=== PATIENT | male | born 1950 | race Caucasian/White ===

== ENCOUNTER → 2017-09-12 | Outpatient (CLI) | payer MEDICARE, BC ==
[~2017-09-12] MED LIST: ADJUSTABLE COMM1 MIS; ALBU8I INH; ALEN35TA24 PO; ATOR20TA15 PO; ATOR40TA PO; ATOR40TA16 PO; BUSP10TA PO; BUSP5 PO; DILT1TAB4 PO; DULE100A PO; ENOX60P SQ; GABA300C5 PO; HYDR-3516 PO; IPRA0.02 NEB; IPRA0.03; ISOS30TA3 PO; LEVA1.257 NEB; LEVA250T14 PO; METO25 PO; OMEP20TA39 PO; OMEP20TA93 PO; RANI300T PO; TAZT240C2 PO; TOBR1NEB NEB; TRAM50TA PO; WALKER WHEELS/F1 MIS; WARF-22 PO; WARF-23 PO; WARF-60 PO; WARF10 PO; WARF4TAB52 PO
[2017-09-12 10:35] LABS: AUTOMATED NEUTROPHIL # 7.3 TH/MM3 (1.8-7.7); BASOPHIL % 0.3 % (0.0-2.0); EOSINOPHIL # 0.2 TH/MM3 (0-0.4); EOSINOPHIL % 1.2 % (0.0-4.0); HEMATOCRIT 43.6 % (39.0-51.0); HEMO FLAGS DIFF FINAL; LYMPH % 33.4 % (9.0-44.0); LYMPHOCYTE # 4.3 TH/MM3 (1.0-4.8); MEAN CELL VOLUME 90.6 FL (80.0-100.0); MEAN CORPUSCULAR HEMOGLOBIN 29.4 PG (27.0-34.0); MEAN CORPUSCULAR HGB CONC 32.5 % (32.0-36.0); MONO % 8.6 % (0.0-8.0); NEUT % 56.5 % (16.0-70.0); PLATELET COUNT 352 TH/MM3 (150-450); RED BLOOD COUNT 4.81 MIL/MM3 (4.50-5.90); RED CELL DISTRIBUTION WIDTH 14.4 % (11.6-17.2); WHITE BLOOD COUNT 12.9 TH/MM3 (4.0-11.0)
[2017-09-12 10:39] LABS: BLOOD, URINE TRACE (NEG); COMMENT (UR) CULT NOT INDICATED; CULTURE IF INDICATED CULT NOT INDICATED; GLUCOSE,URINE NEG (NEG); HYALINE CAST, URINE 16 /lpf (RARE); KETONE, URINE NEG (NEG); MUCUS URINE MANY /lpf (OCC); NITRITE,URINE NEG (NEG); SQUAMOUS EPITHELIAL CELL URINE 1 /hpf (0-5); URINE COLOR YELLOW (YELLW/STRAW)
[2017-09-12 10:41] LABS: INTERNATIONAL NORMALIZED RATIO 3.2 RATIO; PROTHROMBIN TIME - PATIENT 32.7 SEC (9.8-11.6)
[2017-09-12 10:59] LABS: BICARBONATE 28.8 MEQ/L (21.0-32.0); POTASSIUM 4.6 MEQ/L (3.5-5.1)
--- NOTE | 2017-09-12 12:11 | RADRPT ---
EXAM DATE/TIME: 09/12/2017 11:22 [facility] COMPARISON: CHEST SINGLE AP, May 28, 2016, 5:15. INDICATIONS : Pre-operative fo left hip replacement on 09/23/17. Evaluate for pneumonia, pneumothorax, or communica ble disease. MEDICAL HISTORY : Chronic obstructive pulmonary disease. Emphysema. TIA. SURGICAL HISTORY : Lobe removal, left upper. ENCOUNTER: Initial ACUITY: 1 day PAIN SCORE: 0/10 LOCATION: Bilateral chest FINDINGS: PA and lateral views of the chest demonstrate left apical pleural-parenchymal scarring and postsurgic al changes. There is volume loss. Bullous changes right apex.. Osseous structures are intact. CONCLUSION: 1. Stable chest. 2. Pleural-parenchymal scarring and postsurgical changes left lung. Andres Malave MD on September 12, 2017 at 12:09 Board Certified Radiologist. This report was verified electronically.
== END ==
LOC: CPRE 09:58
PROVIDERS: ATTEND Orthopaedic Surgery
DX: Z01.812 Encounter for preprocedural laboratory examination (principal); Z01.811 Encounter for preprocedural respiratory examination; M87.051 Idiopathic aseptic necrosis of right femur; Z79.01 Long term (current) use of anticoagulants
CPT/HCPCS: 36415; 71020; 80048; 81001; 85025; 85610

== ENCOUNTER 2017-09-23 11:02 | Inpatient (IN) | payer MEDICARE, BC ==
--- NOTE | 2017-09-11 12:40 | MH ---
cc: ROSSANA SPICER DATE OF ADMISSION: 09/23/2017 ADMITTING DIAGNOSIS Aseptic necrosis of the right hip. Pain right hip. Gait disturbance. HISTORY The patient is a 66-year-old white male who has had an extended history of pain about his right hip area for at least 2 years' duration. His history actually dates back for a much longer interval of time for which the patient reports that he had undergone previous evaluation for pain of his right foot for which he was referred for podiatry evaluation and was diagnosed as having a stress fracture for which he was fitted with a boot support with progressive pain being noted thereafter. The patient did undergo a subsequent CT scan evaluation with apparently no abnormal findings being noted, but he was requiring use of a wheelchair and walker as ambulatory aids for which he was later referred for neurosurgical evaluation. At that time the patient reported a 40-year history of low back pain for which he had received pain management, especially over the past 2 years but continuing to note discomfort including pain of his right hip area. Clinical findings at that time were suspicious for pain originating in the hip area for which his evaluating neurosurgeon recommended that he proceed with an MRI scan examination. Findings reported avascular necrosis bilaterally, being more pronounced on the right side. The patient was later referred for orthopedic evaluation for which he was seen in August of this year and at that time he reported ongoing pain of his hip area radiating into the groin for which he was having considerable difficulty conforming to all weightbearing activities. He had been taking hydrocodone for pain management and was continuing to utilize a cane as an ambulatory aid at that time but progressively becoming more dependent on a walker. He did admit to a longstanding history of ethanol abuse but having discontinued consumption within the previous 2-3 years. There was no history of excessive steroid use and no other factors that might be associated with an etiology of aseptic necrosis. At the time of his office evaluation x-ray studies revealed collapse of the femoral head with a flattening effect superiorly that was consistent with avascular necrosis. Findings and treatment options were reviewed at that time. The pros and cons of continuing with conservative management versus operative intervention that would involve a total hip arthroplasty were outlined in detail. Emphasis was made regarding the fact that the decision to proceed with surgery would be left entirely to the patient's discretion. The patient readily admitted that he was considerably incapacitated with regards to all activities of daily living because of his right hip pain and was ready to proceed with surgery as discussed. In compliance with his wishes he is currently being scheduled for admission in order that the above be accomplished. PAST MEDICAL HISTORY Hospitalizations and surgeries have included - 1. Cardiac catheterization. 2. Debridement of decubitus ulcers of the buttock area bilaterally. 3. Left upper lobe lobectomy for history of cancer. 4. Medical management for pneumonia. 5. Left pneumothorax. 6. TIA. 7. Anxiety. 8. Additional surgeries have included tracheostomy. MEDICAL ILLNESSES 1. Anxiety, depression. 2. GERD syndrome. 3. Atrial fibrillation. 4. Hypertension. 5. Elevated cholesterol. 6. COPD with emphysema. CURRENT MEDICATIONS 1. Alendronate 35 mg weekly. 2. Calcium with vitamin D 600 mg-400 twice daily. 3. Buspirone 10 mg three times daily. 4. Omeprazole 20 mg daily. 5. Ranitidine 300 mg daily. 6. Warfarin 6 mg daily. 7. Diltiazem ER 240 mg daily. 8. Atorvastatin 40 mg 1/2 tablet daily. 9. Levalbuterol 125 mg two to three times daily. 10. A nebulizer with ipratropium 0.5 mg. 11. He takes hydrocodone 5/325 on a full p.r.n. basis. 12. Gabapentin 300 mg four times daily. 13. The patient is also been on a recent course of antibiotics including ciprofloxacin, Levaquin and tobramycin inhalant for history of upper respiratory infection. ALLERGIES He denies any known drug allergies. REVIEW OF SYSTEMS HEENT: He does wear glasses. Denies headache, seizure or syncope. No sinus congestion or epistaxis. Auditory acuity intact. No tinnitus. No bleeding gums or dysphagia. RESPIRATORY: Denies cough, shortness of breath. There is a history of upper respiratory infection, previous history of pneumonia. No tuberculosis. CARDIOVASCULAR: No angina. GASTROINTESTINAL: Appetite is good. He has frequent constipation based upon chronic use of hydrocodone for which he does utilize a stool softener. No gallbladder disease, ulcers or hemorrhoids. No history of hepatitis. GENITOURINARY: No urinary tract infection. No kidney stones. MUSCULOSKELETAL: There is a history of a fracture of his left great toe as well as bilateral stress fractures of the feet. PSYCHIATRIC: He has undergone psychiatric treatment for anxiety and depression. His remaining review of systems is unremarkable and noncontributory. FAMILY HISTORY 46 years, is 65 years of age, described as being in good health. Two sons and two daughters indicated to be in good health. Family history is otherwise positive for hypertension, diabetes and cancer of unspecified etiology with bony metastases. SOCIAL HISTORY The patient completed 2 years of trade school education. 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 He had been more than a 50 pack-year user of tobacco but discontinued smoking within the previous 3 years. Had been a heavy drinker in the past but no alcohol consumption. Within the past three years. PHYSICAL EXAMINATION VITAL SIGNS: Height 6 feet, 1 inch, weight 196 pounds. GENERAL: An alert, oriented and responsive 66-year-old white male who sits quietly upon the examination table. No obvious distress. HEAD, EYES, EARS, NOSE, AND THROAT: Pupils are equally, round and reactive to light. Extraocular movements full. Sclerae clear. External nares clear. External auditory canals clear. Dental intact. Mucous membranes pink and moist. Pharynx clear. NECK: Supple. There is limited mobility towards the extremes of motion with mild discomfort that the patient describes as being chronic in nature. Carotid pulse palpable bilaterally. Trachea midline. Thyroid without enlargement. LUNGS: Clear to auscultation and percussion. No CVA tenderness. No discomfort throughout the dorsal lumbar spine. HEART: Regular irregular rhythm without murmur or gallop. ABDOMEN: Soft, nontender. Bowel sounds present. RECTAL: Per primary care physician. EXTREMITIES: Right hip- There is no localizing tenderness about the lateral aspect of the right hip. In a seated position there is restricted mobility of the hip joint in all ranges assessed with pain and apprehension associated with the extremes of motion. No sensation of crepitation or instability. Straight-leg raising is limited to 60 degrees. Distal sensory grossly intact. Pronounced antalgic gait. NEUROLOGIC: Cranial nerves II-XII grossly intact. IMPRESSION Aseptic necrosis right hip. Pain right hip. Gait disturbance. PLAN Right total hip arthroplasty. The nature of the planned surgical procedure, the potential complications and risks associated, the expectations of surgery and the consent form were thoroughly reviewed with the patient in the presence of his prior to his admission to the hospital. John has indicated his full understanding regarding all of the above and given consent to proceed with treatment as outlined. Medical evaluation and clearance for surgery will be completed by his primary care physician Dr. Elvi Ang, pulmonology clearance per Dr. Pedraza, cardiology clearance per Dr. Benz. MD OLE Anguiano/SSB /11:55 AM /12:17 PM
[~2017-09-23] VITALS: Ht 185.4 cm; Wt 88.5 kg
[~2017-09-23 11:02] MED LIST changes: -ADJUSTABLE COMM1 MIS; -ALBU8I INH; -ATOR40TA PO; -ATOR40TA16 PO; -BUSP5 PO; -DULE100A PO; -ENOX60P SQ; -IPRA0.03; -ISOS30TA3 PO; -LEVA250T14 PO; -METO25 PO; -OMEP20TA39 PO; -TAZT240C2 PO; -TRAM50TA PO; -WALKER WHEELS/F1 MIS; -WARF-22 PO; -WARF-23 PO; -WARF10 PO; -WARF4TAB52 PO
[2017-09-23] MEDS ORDERED: POVIDONE IODINE 7.5% SCRUB 118 ML BOTTLE TOPICAL SCH (12:00)
[2017-09-23] MEDS ORDERED: PROPOFOL 200 MG/20 ML AMP IV ONE (12:00)
[2017-09-23] MEDS ORDERED: TRANEXAMIC ACID 1 GM PRIOR TO PROCEDURE IV SCH ×2 (12:00)
[2017-09-23] MEDS ORDERED: ceFAZolin 2 GM PREMIX 50 ML IV SCH (12:00)
[2017-09-23] MEDS ORDERED: PHENYLEPH/NS 1000 MCG/10 ML SYR IV ONE (12:00)
[2017-09-23] MEDS ORDERED: DEXAMETHASONE SOD PHOS 4 MG/ML VIAL IV ONE (12:00)
[2017-09-23] MEDS ORDERED: ONDANSETRON HCL 4 MG/2 ML VIAL IV PUSH ONE (12:00)
[2017-09-23] MEDS ORDERED: WARF-23 PO (12:07)
[2017-09-23] MEDS ORDERED: WARF4TAB52 PO (12:07)
[2017-09-23] MEDS ORDERED: ATOR40TA16 PO (12:10)
[2017-09-23] MEDS ORDERED: SODIUM CHLORID 0.9% 500 ML IV PRN (12:15)
[2017-09-23] MEDS ORDERED: METOPROLOL TARTRATE 25 MG TAB PO PRN (12:15)
[2017-09-23] MEDS ORDERED: POVIDONE IODINE 5% (ANTISEPSIS KIT) 4 APPLICATIONS EACH NARE PRN (12:15)
[2017-09-23] MEDS ORDERED: CHLORHEXIDINE GLUCONATE 2 % 1 PACK (2 CLOTHS) TOPICAL PRN (12:15)
[2017-09-23] MEDS ORDERED: LACTATED RINGER'S 1000 ML IV PRN (12:15)
[2017-09-23] MEDS ORDERED: PROPOFOL 500 MG/50 ML INJ 50 ML ONE (12:22)
[2017-09-23] MEDS ORDERED: ceFAZolin INJ 1,000 MG VIAL ONE (12:43)
[2017-09-23 12:51] LABS: PROTHROMBIN TIME - PATIENT 10.6 SEC (9.8-11.6)
--- NOTE | 2017-09-23 13:06 | EKG ---
Date Performed: 09/23/2017 Time Performed: 12:04:24 PTAGE: 66 years EKG: ATRIAL FLUTTER/TACHYCARDIA RIGHT BUNDLE BRANCH BLOCK ABNORMAL ECG No significant change fro m prior electrocardiogram. PREVIOUS TRACING : 06/17/2016 07.44 DOCTOR: Femi Molina Interpretating Date/Time 09/23/2017 13:04:18
[2017-09-23] MEDS ORDERED: TRANEXAMIC ACID 1 GM POST-OP IV SCH ×2 (15:00)
[2017-09-23] MEDS ORDERED: DO NOT ADM ANY ANTICOAGULANT DRUGS PRN (15:09)
[2017-09-23] MEDS ORDERED: ACETAMINOPHEN 325 MG TAB PO PRN (15:15)
[2017-09-23] MEDS ORDERED: ONDANSETRON HCL 4 MG/2 ML VIAL IVP PRN (15:15)
[2017-09-23] MEDS ORDERED: MISCELLANEOUS PHARMACY INFORMATION XX ONE (15:15)
[2017-09-23] MEDS ORDERED: ACETAMINOPHEN/HYDROcodone 325 MG/5 MG TAB PO PRN (15:15)
[2017-09-23] MEDS ORDERED: ZOLPIDEM TARTRATE 5 MG TAB PO PRN (15:15)
[2017-09-23] MEDS ORDERED: NALOXONE HCL 0.4 MG/ML AMP IV PUSH PRN (15:15)
[2017-09-23] MEDS ORDERED: Post-op Orders (for Pharmacy) XX ONE (15:15)
[2017-09-23] MEDS ORDERED: *morphine SULFATE 8 MG/ML PERIprocedure ONLY ONE (15:16)
[2017-09-23] MEDS ORDERED: TRANEXAMIC ACID INJ 1,000 MG in SODIUM CHLORIDE 0.9% INJ 100 ML IV SCH (15:26)
[2017-09-23] MEDS: DEXT 5%-NACL 0.45% 1000 ML INJ 1,000 ML IV SCH ×2 (15:56→21:18)
--- NOTE | 2017-09-23 16:04 | RADRPT ---
EXAM DATE/TIME: 09/23/2017 15:19 [facility] COMPARISON: No previous studies available for comparison. INDICATIONS : Right hip post op. MEDICAL HISTORY : Chronic obstructive pulmonary disease. Emphysema. TIA. SURGICAL HISTORY : Lobe removal, left upper ENCOUNTER: Initial ACUITY: 1 day PAIN SCORE: Non-responsive. LOCATION: Right hip. FINDINGS: View of the right hip was obtained. Patient's had a total hip arthroplasty in excellent position. CONCLUSION: Unremarkable examination of the right hip s/p arthroplasty. Augustine Salguero MD on September 23, 2017 at 16:01 Board Certified Radiologist. This report was verified electronically.
[2017-09-23] MEDS ORDERED: *MEPERIDINE 25 MG INJ VIAL PERIprocedural Use ONLY ONE (16:20)
[2017-09-23] MEDS: MORPHINE SULFATE 30 MG/30 ML PCA IV SCH (16:36)
[2017-09-23 17:54] VITALS: BP 167/95; PULSE 85; RESP 18; TEMP 96; O2SAT 98
[2017-09-23 19:50] VITALS: BP 140/66; PULSE 72; RESP 16; TEMP 96.8; O2SAT 96
[2017-09-23] MEDS: PCA - TOTAL MG MORPHINE DELIVERED PER SHIFT SCH (22:00)
[2017-09-24] VITALS (9 sets, daily range): BP systolic 95–139; BP diastolic 64–82; PULSE 55–89; RESP 17–18; TEMP 96.3–98.2; O2SAT 93–98
[2017-09-24] MEDS ORDERED: RESP: ALBUTEROL 2.5 MG/IPRATROPIUM 0.5 MG NEB (PRN) NEB ×2 (01:15→09:30)
[2017-09-24] MEDS: DILTIAZEM-CD 240 MG CAP ER PO SCH ×3 (01:19→20:57)
[2017-09-24] MEDS: MORPHINE SULFATE 30 MG/30 ML PCA IV SCH (01:27)
[2017-09-24] MEDS: PCA - TOTAL MG MORPHINE DELIVERED PER SHIFT SCH ×3 (06:00→20:58)
[2017-09-24] MEDS ORDERED: HYDR-3516 PO (06:32)
--- NOTE | 2017-09-24 06:35 | HHI.FF ---
Face to Face Verification Diagnosis: (1) Aseptic necrosis of bone of right hip Physical Therapy Gait training Hip: Total hip, Protocol: Right, Abduction pillow while in bed Right LE Weight Bearing: WB as tolerated Right LE Range of Motion: Active ROM Nursing Dressing Changes: Daily dressing change I have seen patient Ismael Yancey on 09/24/17. My clinical findings support the need for the requested home health care services because: Limited ability to care for self High risk of falls I certify that my clinical findings support that this patient is homebound because: Post-op weakness Unsteady gait/balance Unsafe to leave home unassisted Vic Cabello MD Sep 24, 2017 06:34
[2017-09-24] MEDS ORDERED: WALKER WHEELS/F1 MIS (06:38)
[2017-09-24] MEDS ORDERED: ADJUSTABLE COMM1 MIS (06:38)
[2017-09-24 06:55] LABS: HEMATOCRIT 35.8 % (39.0-51.0); REVIEW FLAG FINAL
[2017-09-24] MEDS: DEXT 5%-NACL 0.45% 1000 ML INJ 1,000 ML IV SCH ×3 (07:12→20:58)
--- NOTE | 2017-09-24 07:17 | MP ---
cc: ROSSANA CABELLO DATE OF OPERATION 23 September 2017 PREOPERATIVE DIAGNOSIS Aseptic necrosis of right hip. Pain right hip. Gait disturbance. POSTOPERATIVE DIAGNOSIS Aseptic necrosis of right hip. Pain right hip. Gait disturbance. PROCEDURE right total hip arthroplasty. SURGEON MD Irineo ANESTHESIA Spinal. INDICATIONS A 66-year-old white male with an extended history of pain involving his right hip, going back at least 2 years. His history actually extended back for much longer interval of time when the patient had undergone previous evaluation Initially, oriented towards his right foot for which he was referred for podiatry evaluation and diagnosed as having a stress fracture for which he was fitted with boot support but noting progressive pain thereafter. A subsequent CT scan evaluation was completed with no abnormal findings being noted but he was requiring use of a wheelchair and walker as ambulatory aids. He was later referred for neurosurgical evaluation and at that time he presented a history of 40 years of low back pain for which he had received pain management but during the past 2 years had noted progressive discomfort especially involving his right hip. At that time his clinical findings were suspicious for pain originating from the hip as opposed to his lumbar spine for which his evaluating neurosurgeon recommended that he proceed with an MRI scan evaluation. Findings identified avascular necrosis bilaterally being more pronounced about the right hip area for which the patient was later referred for orthopedic evaluation and being seen by the undersigned physician in August of this year. At that time he reported ongoing pain about his hip associated with all weightbearing activities for which he had been taking hydrocodone for pain management. He was continued to utilize a cane as an ambulatory aid but becoming increasingly more dependent upon a walker. He did admit to a longstanding history of ethanol abuse but he had discontinued consumption within the previous 2-3 years. Otherwise there were no additional factors that might be associated with the etiology of aseptic necrosis. At that time his x-ray studies did revealed collapse of the femoral head with a flattening effect superiorly that was consistent with the given diagnosis. Findings and treatment options were reviewed. The pros and cons of continuing with conservative management versus operative intervention that would involve a total hip arthroplasty were outlined in detail. The emphasis was made regarding the fact that the decision to proceed with surgery would be left entirely to the patient's discretion. The patient readily admitted that he was considerably incapacitated with regards to all activities of daily living as related to his right hip pain and was ready to proceed with surgery as discussed. In compliance with his wishes he was scheduled for admission at this time in order that the above be accomplished. FORMAT Following the induction of satisfactory spinal anesthesia as completed per the Department of Anesthesia, the patient was positioned upon the operating table in a left lateral decubitus fashion. The right hip and lower extremity proper was isolated with a U drape, thereafter being prepped with Betadine solution and draped into a sterile field in the routine manner. Prior to the initiation of the actual procedure, the standard time-out protocol was completed. All parameters were appropriately addressed and confirmed by operating room personnel. A standard posterolateral approach to the hip was initiated through a sharp skin incision and developed through underlying subcutaneous tissue with hemostasis maintained by electrocautery. By deepening dissection the fascia overlying the gluteus musculature was exposed and thereafter sharply incised to the limits of the incision. The underlying gluteus fibers were bluntly divided. Progressive dissection facilitated exposure of the short external rotators structures. Piriformis tendon was utilized as anatomical landmark and division of these structures was completed in a superior to inferior orientation and reflected medially exposing the posterior capsule. The sciatic nerve was protected. An L-shaped capsulotomy was accomplished through which a posterior dislocation of the femoral head was completed. Examination revealed significant degenerative changes with a delamination of the cartilage cap that was consistent with an avascular necrosis. The femoral template was positioned for alignment orientation. The neck was scored and thereafter divided with power saw, the amputated segment being passed to the back table as surgical specimen. Attention was initially directed to the proximal femur. Cancellous bone was harvested. The tapered reamer was inserted for alignment orientation. Sequential rasping and broaching was thereafter accomplished from 8 through 16 mm with the calcar zacarias being utilized at the 16-mm stage. The 16-mm stem was determined to be a favorable fit. The trial component being removed, attention was redirected the acetabulum. The labrum and reactive soft tissue were sharply excised. Progressive reaming was thereafter accomplished from 48 through 59 mm, the 60 trial shell positioned and determined to be satisfactory. Trial components being removed, the wound was copiously irrigated with pulsating antibiotic solution, hemostasis maintained by electrocautery. Thereafter a 60-mm Continuum acetabular shell was firmly seated in approximately 45 degrees inclination to the horizontal and slight anteversion. A single 25-mm, 6.5 cancellous screw was inserted superiorly to augment fixation. The permanent high wall acetabular liner was attached to the acetabular shell. The 16-mm trial femoral broach was repositioned and a trial reduction followed utilizing a 36-mm modular head with -6 mm neck length adapter. The hip readily reduced and was carried through a passive range of motion with stability noted at 90 degrees flexion and 45 degrees internal rotation. An open dislocation completed, the trial femoral components being removed, the canal was thoroughly irrigated and dried and thereafter the permanent 16-mm Echo [employer] standard femoral stem was firmly seated to which a 36-mm ceramic head with -6 mm neck length adapter attached. The hip was thereafter again reduced and carried through a passive range of motion with stability again being demonstrated as previously described. Final irrigation was accomplished, hemostasis being maintained by electrocautery. The posterior capsule was repaired with 0 Vicryl suture. Piriformis tendon and short external rotator structures were reapproximated in a similar fashion. The fascia of the gluteus musculature was reapproximated with a running 0 Vicryl suture. The remaining portion of the wound was closed in layers in the routine manner, skin margins being reapproximated with a running subcuticular 3-0 Vicryl suture over which Steri-Strips were applied. Xeroform gauze and a bulky dry sterile dressing were placed. The patient was repositioned into a supine orientation where an abduction splint was attached. Anesthesia was discontinued. He was thereafter transferred to a hospital bed and returned to the recovery room in satisfactory condition having tolerated his operative procedure well. Estimated blood loss approximately 200 cc as determined per Anesthesia. Acetabular implants were of the Judd brusher operator, femoral implants of the [employer] manufacture. Rossana Cabello MD NBS/SSB /3:01 PM /6:52 AM
--- NOTE | 2017-09-24 08:06 | PD.CONS ---
HPI Service [facility] Consult Requested By Dr Irineo greer Reason for Consult med management Primary Care Physician Elvi Ang M.D. Diagnoses: History of Present Illness 66 yo male with PMH of COPD, Afib , HLD, h/o lung cancer with partial right lung resection, OA. Patient is here for right hip replacement. He was seen after the surgery, in bed appears in nad. Says ship pain is controlled by meds. No n/v/d/c. No chest pain, shortness of breath, lightheadedness. He denies any cough , no wheezing. He is saturating well and at this time. No lower extremity edema. Review of Systems Except as stated in HPI: all other systems reviewed are Neg Past Family Social History Allergies: Coded Allergies: No Known Allergies (Verified Allergy, Unknown, 09/23/17) Past Medical History COPD, Afib , HLD, CKD3, h/o cancer with partial right lung removal Past Surgical History partial right lung removed cardiac cath skin ca removed from back Reported Medications Last Impressions Hip X-Ray 09/23/17 1512 Signed Impressions: Service Date/Time: Saturday, September 23, 2017 15:19 - CONCLUSION: Unremarkable examination of the right hip s/p arthroplasty. Augustine Salguero MD Family History Mother cancer unspecified smoker Father when he was a kid , he was 7 ya Social History Tobacco 1-3 PPD for 50 years quit in 2013 Quit EtOH use in 2013 case a beer a week used to. No illicit drug use. Used to smoke MJ quit 2013. Physical Exam Vital Signs Vital Signs Date Time Temp Pulse Resp B/P (MAP) Pulse Ox O2 Delivery O2 Flow Rate FiO2 09/24/17 07:50 Room Air 09/24/17 04:15 96.9 88 17 133/78 (96) 96 09/24/17 00:00 96.9 84 17 139/82 (101) 97 09/23/17 19:50 96.8 72 16 140/66 (90) 96 09/23/17 17:54 96.0 85 18 167/95 (119) 98 09/23/17 16:45 66 15 151/72 (98) 99 Nasal Cannula 2 09/23/17 16:36 12 09/23/17 16:30 63 12 136/63 (87) 100 Nasal Cannula 2 09/23/17 16:15 63 13 122/67 (85) 100 Nasal Cannula 2 09/23/17 16:00 62 13 155/74 (101) 100 Nasal Cannula 2 09/23/17 15:45 63 12 132/68 (89) 100 Nasal Cannula 2 09/23/17 15:30 65 12 128/64 (85) 100 Nasal Cannula 2 09/23/17 15:15 66 13 107/57 (74) 100 Nasal Cannula 2 09/23/17 15:09 97.5 67 13 108/61 (77) 98 Nasal Cannula 2 09/23/17 11:46 97.8 88 18 184/92 (122) 98 Physical Exam GENERAL: This is a well-nourished, well-developed patient, in no apparent distress. SKIN: No rashes, ecchymoses or lesions. Cool and dry. HEAD: Atraumatic. Normocephalic. No temporal or scalp tenderness. EYES: Pupils equal round and reactive. Extraocular motions intact. No scleral icterus. No injection or drainage. ENT: Nose without bleeding, purulent drainage or septal hematoma. Throat without erythema, tonsillar hypertrophy or exudate. Uvula midline. Airway patent. NECK: Trachea midline. No JVD or lymphadenopathy. Supple, nontender, no meningeal signs. CARDIOVASCULAR: Regular rate and rhythm without murmurs, gallops, or rubs. RESPIRATORY: Clear to auscultation. Breath sounds equal bilaterally. No wheezes , rales, or rhonchi. GASTROINTESTINAL: Abdomen soft, non-tender, nondistended. No hepato-splenomegaly , or palpable masses. No guarding. MUSCULOSKELETAL: Right hip s/p surgery dressing in place c/d/i. Extremities without clubbing, cyanosis, or edema. No joint tenderness, effusion, or edema noted. No calf tenderness. Negative Homans sign bilaterally. NEUROLOGICAL: Awake and alert. Cranial nerves II through XII intact. Motor and sensory grossly within normal limits. Five out of 5 muscle strength in all muscle groups. Normal speech. Laboratory Laboratory Tests Test 09/23/17 12:15 09/24/17 06:13 Prothrombin Time 10.6 Prothromb Time International Ratio 1.0 Hemoglobin 11.8 Hematocrit 35.8 Result Diagram: 09/24/17 0613 Imaging Last Impressions Hip X-Ray 09/23/17 1512 Signed Impressions: Service Date/Time: Saturday, September 23, 2017 15:19 - CONCLUSION: Unremarkable examination of the right hip s/p arthroplasty. Augustine Salguero MD Assessment and Plan Assessment and Plan Aseptic necrosis of right hip. Pain right hip. Gait disturbance. S/P right total hip arthroplasty by Dr Irineo greer on 09/24/17 Management per ortho Chronic medical problems appears stable at this time. COPD, Afib , HLD, CKD3, h/ o cancer with partial right lung removal continue home meds. Discussed with the patient, nurse. Laverne Emanuel MD Sep 24, 2017 08:06
[2017-09-24] MEDS: busPIRone HCL 10 MG TAB PO SCH ×3 (08:54→18:26)
[2017-09-24] MEDS: FAMOTIDINE 20 MG TAB PO SCH ×2 (08:54→20:57)
[2017-09-24] MEDS ORDERED: DILTIAZEM-CD 240 MG CAP ER PO SCH (09:00)
[2017-09-24] MEDS ORDERED: GABAPENTIN 300 MG CAP PO SCH (09:00)
[2017-09-24] MEDS ORDERED: ATORVASTATIN 20 MG TAB PO SCH (09:00)
[2017-09-24] MEDS: ACETAMINOPHEN/HYDROcodone 325 MG/5 MG TAB PO PRN ×2 (13:46→18:31)
[2017-09-24] MEDS: RIVAROXABAN 10 MG TAB PO SCH (15:00)
[2017-09-24] MEDS ORDERED: RESP: ALBUTEROL 1.25 MG/3 ML NEB (SCH) NEB (20:00)
[2017-09-24] MEDS: RESP: IPRATROPIUM 0.5 MG/2.5 ML NEB NEB SCH (20:27)
[2017-09-24] MEDS: ATORVASTATIN 20 MG TAB PO SCH (20:57)
[2017-09-25] MEDS: ACETAMINOPHEN/HYDROcodone 325 MG/5 MG TAB PO PRN ×5 (02:38→22:59)
[2017-09-25] MEDS: PCA - TOTAL MG MORPHINE DELIVERED PER SHIFT SCH ×2 (03:09→13:51)
[2017-09-25] MEDS: DEXT 5%-NACL 0.45% 1000 ML INJ 1,000 ML IV SCH ×3 (07:12→23:12)
[2017-09-25 08:00] VITALS: BP 138/62; PULSE 60; RESP 18; TEMP 96.9; O2SAT 97
[2017-09-25] MEDS: RESP: IPRATROPIUM 0.5 MG/2.5 ML NEB NEB SCH ×2 (08:00→19:55)
[2017-09-25] MEDS: busPIRone HCL 10 MG TAB PO SCH ×3 (08:20→21:37)
[2017-09-25] MEDS: FAMOTIDINE 20 MG TAB PO SCH ×2 (08:20→21:37)
[2017-09-25] MEDS: DOCUSATE SODIUM 100 MG CAP PO PRN (08:20)
--- NOTE | 2017-09-25 08:52 | HHI.PR ---
Subjective Remarks Was walking with PT in the hallways, feel tired. He is sob but satting well on room air. No n/v/d/c. Pain is controlled by meds. Nisha evangelistauld like to go to [facility] inpatient re[facility]. He has no fever or chills. No wheezing. No n/v/d/c. Objective Vitals Vital Signs Date Time Temp Pulse Resp B/P (MAP) Pulse Ox O2 Delivery O2 Flow Rate FiO2 09/25/17 07:50 Room Air 09/24/17 23:33 96.7 89 18 126/77 (93) 94 09/24/17 20:27 95 21 09/24/17 20:07 97.0 76 18 122/69 (86) 94 09/24/17 16:00 96.3 79 18 95/64 (74) 98 09/24/17 12:00 98.2 88 18 137/79 (98) 95 I/O 09/24/17 09/24/17 09/24/17 09/25/17 09/25/17 09/25/17 07:00 15:00 23:00 07:00 15:00 23:00 Intake Total 240 ml 720 ml 360 ml 720 ml Output Total 525 ml 500 ml 700 ml Balance -285 ml 220 ml 360 ml 20 ml Intake Oral 240 ml 720 ml 360 ml 720 ml Output Urine Total 525 ml 500 ml 700 ml # Voids 2 # Bowel Movements 0 0 0 0 Result Diagram: 09/24/17 0613 Imaging Last Impressions Hip X-Ray 09/23/17 1512 Signed Impressions: Service Date/Time: Saturday, September 23, 2017 15:19 - CONCLUSION: Unremarkable examination of the right hip s/p arthroplasty. Augustine Salguero MD Objective Remarks GENERAL: This is a well-nourished, well-developed patient, in no apparent distress. CARDIOVASCULAR: Regular rate and rhythm without murmurs, gallops, or rubs. RESPIRATORY: Clear to auscultation. Breath sounds equal bilaterally. No wheezes , rales, or rhonchi. GASTROINTESTINAL: Abdomen soft, non-tender, nondistended. No hepato-splenomegaly , or palpable masses. No guarding. MUSCULOSKELETAL: Right hip s/p surgery dressing in place c/d/i. Extremities without clubbing, cyanosis, or edema. No joint tenderness, effusion, or edema noted. No calf tenderness. Negative Homans sign bilaterally. NEUROLOGICAL: Awake and alert. Cranial nerves II through XII intact. Motor and sensory grossly within normal limits. Five out of 5 muscle strength in all muscle groups. Normal speech. A/P Assessment and Plan Aseptic necrosis of right hip. Pain right hip. Gait disturbance. S/P right total hip arthroplasty by Dr Irineo greer on 09/24/17 Management per ortho Chronic medical problems appears stable at this time. COPD, Afib , HLD, CKD3, h/ o cancer with partial right lung removal continue home meds. Patient to use his own medicaltion levalbuterol. Discussed with the nurse and the pharmacist. did bring levalbuterol from home. Discussed with the patient, nurse, at bedside. Laverne Emanuel MD Sep 25, 2017 08:52
[2017-09-25] MEDS ORDERED: LEVALBUTEROL INH SCH (11:00)
[2017-09-25 12:00] VITALS: BP 127/65; PULSE 72; RESP 18; TEMP 95.8; O2SAT 96
[2017-09-25] MEDS: RIVAROXABAN 10 MG TAB PO SCH (13:38)
[2017-09-25 16:00] VITALS: BP 142/67; PULSE 72; RESP 18; TEMP 96.3; O2SAT 97
[2017-09-25] MEDS: MAGNESIUM HYDROXIDE SUSP 30 ML CUP PO PRN (18:08)
[2017-09-25 19:37] VITALS: BP 149/67; PULSE 101; RESP 18; TEMP 96.7; O2SAT 97
[2017-09-25 20:01] VITALS: O2SAT 97
[2017-09-25] MEDS: DILTIAZEM-CD 240 MG CAP ER PO SCH (21:37)
[2017-09-25] MEDS: ATORVASTATIN 20 MG TAB PO SCH (21:37)
[2017-09-25 23:57] VITALS: BP 126/69; PULSE 69; RESP 18; TEMP 97.1; O2SAT 98
[2017-09-26 08:00] VITALS: BP 152/73; PULSE 65; RESP 18; TEMP 97; O2SAT 95
[2017-09-26] MEDS: RESP: IPRATROPIUM 0.5 MG/2.5 ML NEB NEB SCH (08:50)
[2017-09-26] MEDS: MAGNESIUM HYDROXIDE SUSP 30 ML CUP PO PRN (08:51)
[2017-09-26] MEDS: FAMOTIDINE 20 MG TAB PO SCH (08:51)
[2017-09-26] MEDS: busPIRone HCL 10 MG TAB PO SCH ×3 (08:51→17:06)
[2017-09-26] MEDS: DOCUSATE SODIUM 100 MG CAP PO PRN (08:51)
[2017-09-26] MEDS: ACETAMINOPHEN/HYDROcodone 325 MG/5 MG TAB PO PRN ×3 (08:52→17:07)
[2017-09-26 08:53] VITALS: O2SAT 97
--- NOTE | 2017-09-26 09:15 | HHI.PR ---
Subjective Remarks 66 yo male with PMH of COPD, Afib , HLD, h/o lung cancer with partial right lung resection, OA. Patient is here for right hip replacement. He was seen after the surgery, in bed appears in nad. Says hip pain is controlled by meds. No n/v/d/c. No chest pain, shortness of breath, lightheadedness. He denies any cough , no wheezing. He is saturating well and at this time. No lower extremity edema. 09-26 only some pain in his right hip Denies any nausea vomiting or diarrhea or obstipation Has been moving around he states with physical therapy Objective Vitals Vital Signs Date Time Temp Pulse Resp B/P (MAP) Pulse Ox O2 Delivery O2 Flow Rate FiO2 09/26/17 08:53 97 09/25/17 23:57 97.1 69 18 126/69 (88) 98 09/25/17 21:34 Room Air 2.00 21 09/25/17 20:01 97 21 09/25/17 19:37 96.7 101 18 149/67 (94) 97 09/25/17 16:00 96.3 72 18 142/67 (92) 97 09/25/17 12:00 95.8 72 18 127/65 (85) 96 I/O 09/25/17 09/25/17 09/25/17 09/26/17 09/26/17 09/26/17 07:00 15:00 23:00 07:00 15:00 23:00 Intake Total 720 ml 720 ml 720 ml 375 ml Output Total 700 ml 550 ml 425 ml Balance 20 ml 170 ml 720 ml -50 ml Intake Oral 720 ml 720 ml 720 ml 375 ml Output Urine Total 700 ml 550 ml 425 ml # Voids 1 3 # Bowel Movements 0 0 0 0 Result Diagram: 09/24/17 0613 Other Results Laboratory Tests Test 09/23/17 12:15 09/24/17 06:13 Prothrombin Time 10.6 SEC Prothromb Time International Ratio 1.0 RATIO Hemoglobin 11.8 GM/DL Hematocrit 35.8 % Imaging Last Impressions Hip X-Ray 09/23/17 8472 Signed Impressions: Service Date/Time: Saturday, September 23, 2017 15:19 - CONCLUSION: Unremarkable examination of the right hip s/p arthroplasty. Augustine Salguero MD Objective Remarks GENERAL: Awake alert oriented talkative and cooperative SKIN: Warm and dry. HEAD: Atraumatic. Normocephalic. EYES: Pupils equal and round. No scleral icterus. No injection or drainage. Extraocular muscles intact ENT: No nasal bleeding or discharge. Mucous membranes pink and moist. Tongue is midline NECK: Trachea midline. No JVD. Supple CARDIOVASCULAR: Regular rate and rhythm. S1 and S2 no S3 or S4 no heave or thrill or rub or gallop RESPIRATORY: No accessory muscle use. Clear to auscultation. Breath sounds equal bilaterally. GASTROINTESTINAL: Abdomen soft, non-tender, nondistended. Hepatic and splenic margins not palpable. MUSCULOSKELETAL: Extremities without clubbing, cyanosis, or edema. No obvious deformities. NEUROLOGICAL: Awake and alert. No obvious cranial nerve deficits. Motor grossly within normal limits. Five out of 5 muscle strength in the arms and legs. Normal speech. PSYCHIATRIC: Appropriate mood and affect; insight and judgment normal. Procedures ROSSANA SPICER DATE OF OPERATION 23 September 2017 PREOPERATIVE DIAGNOSIS Aseptic necrosis of right hip. Pain right hip. Gait disturbance. POSTOPERATIVE DIAGNOSIS Aseptic necrosis of right hip. Pain right hip. Gait disturbance. PROCEDURE right total hip arthroplasty. SURGEON MD Irineo ANESTHESIA Spinal. INDICATIONS A 66-year-old white male with an extended history of pain involving his right hip, going back at least 2 years. His history actually extended back for much longer interval of time when the patient had undergone previous evaluation Initially, oriented towards his right foot for which he was referred for podiatry evaluation and diagnosed as having a stress fracture for which he was fitted with boot support but noting progressive pain thereafter. A subsequent CT scan evaluation was completed with no abnormal findings being noted but he was requiring use of a wheelchair and walker as ambulatory aids. He was later referred for neurosurgical evaluation and at that time he presented a history of 40 years of low back pain for which he had received pain management but during the past 2 years had noted progressive discomfort especially involving his right hip. At that time his clinical findings were suspicious for pain originating from the hip as opposed to his lumbar spine for which his evaluating neurosurgeon recommended that he proceed with an MRI scan evaluation. Findings identified avascular necrosis bilaterally being more pronounced about the right hip area for which the patient was later referred for orthopedic evaluation and being seen by the undersigned physician in August of this year. At that time he reported ongoing pain about his hip associated with all weightbearing activities for which he had been taking hydrocodone for pain management. He was continued to utilize a cane as an ambulatory aid but becoming increasingly more dependent upon a walker. He did admit to a longstanding history of ethanol abuse but he had discontinued consumption within the previous 2-3 years. Otherwise there were no additional factors that might be associated with the etiology of aseptic necrosis. At that time his x-ray studies did revealed collapse of the femoral head with a flattening effect superiorly that was consistent with the given diagnosis. Findings and treatment options were reviewed. The pros and cons of continuing with conservative management versus operative intervention that would involve a total hip arthroplasty were outlined in detail. The emphasis was made regarding the fact that the decision to proceed with surgery would be left entirely to the patient's discretion. The patient readily admitted that he was considerably incapacitated with regards to all activities of daily living as related to his right hip pain and was ready to proceed with surgery as discussed. In compliance with his wishes he was scheduled for admission at this time in order that the above be accomplished. FORMAT Following the induction of satisfactory spinal anesthesia as completed per the Department of Anesthesia, the patient was positioned upon the operating table in a left lateral decubitus fashion. The right hip and lower extremity proper was isolated with a U drape, thereafter being prepped with Betadine solution and draped into a sterile field in the routine manner. Prior to the initiation of the actual procedure, the standard time-out protocol was completed. All parameters were appropriately addressed and confirmed by operating room personnel. A standard posterolateral approach to the hip was initiated through a sharp skin incision and developed through underlying subcutaneous tissue with hemostasis maintained by electrocautery. By deepening dissection the fascia overlying the gluteus musculature was exposed and thereafter sharply incised to the limits of the incision. The underlying gluteus fibers were bluntly divided. Progressive dissection facilitated exposure of the short external rotators structures. Piriformis tendon was utilized as anatomical landmark and division of these structures was completed in a superior to inferior orientation and reflected medially exposing the posterior capsule. The sciatic nerve was protected. An L-shaped capsulotomy was accomplished through which a posterior dislocation of the femoral head was completed. Examination revealed significant degenerative changes with a delamination of the cartilage cap that was consistent with an avascular necrosis. The femoral template was positioned for alignment orientation. The neck was scored and thereafter divided with power saw, the amputated segment being passed to the back table as surgical specimen. Attention was initially directed to the proximal femur. Cancellous bone was harvested. The tapered reamer was inserted for alignment orientation. Sequential rasping and broaching was thereafter accomplished from 8 through 16 mm with the calcar zacarias being utilized at the 16-mm stage. The 16-mm stem was determined to be a favorable fit. The trial component being removed, attention was redirected the acetabulum. The labrum and reactive soft tissue were sharply excised. Progressive reaming was thereafter accomplished from 48 through 59 mm, the 60 trial shell positioned and determined to be satisfactory. Trial components being removed, the wound was copiously irrigated with pulsating antibiotic solution, hemostasis maintained by electrocautery. Thereafter a 60-mm Continuum acetabular shell was firmly seated in approximately 45 degrees inclination to the horizontal and slight anteversion. A single 25-mm, 6.5 cancellous screw was inserted superiorly to augment fixation. The permanent high wall acetabular liner was attached to the acetabular shell. The 16-mm trial femoral broach was repositioned and a trial reduction followed utilizing a 36-mm modular head with -6 mm neck length adapter. The hip readily reduced and was carried through a passive range of motion with stability noted at 90 degrees flexion and 45 degrees internal rotation. An open dislocation completed, the trial femoral components being removed, the canal was thoroughly irrigated and dried and thereafter the permanent 16-mm Echo Bi-Metric standard femoral stem was firmly seated to which a 36-mm ceramic head with -6 mm neck length adapter attached. The hip was thereafter again reduced and carried through a passive range of motion with stability again being demonstrated as previously described. Final irrigation was accomplished, hemostasis being maintained by electrocautery. The posterior capsule was repaired with 0 Vicryl suture. Piriformis tendon and short external rotator structures were reapproximated in a similar fashion. The fascia of the gluteus musculature was reapproximated with a running 0 Vicryl suture. The remaining portion of the wound was closed in layers in the routine manner, skin margins being reapproximated with a running subcuticular 3-0 Vicryl suture over which Steri-Strips were applied. Xeroform gauze and a bulky dry sterile dressing were placed. The patient was repositioned into a supine orientation where an abduction splint was attached. Anesthesia was discontinued. He was thereafter transferred to a hospital bed and returned to the recovery room in satisfactory condition having tolerated his operative procedure well. Estimated blood loss approximately 200 cc as determined per Anesthesia. Acetabular implants were of the Judd flat bed knitter, femoral implants of the [employer] manufacture. Medications and IVs Current Medications Povidone Iodine (Betadine 7.5% Scrub) 1 applic ONCE TOPICAL Last administered on 09/23/17 12:32; Start 09/23/17 at 12:00; Stop 09/26/17 at 11:59 Cefazolin Sodium/ Dextrose 50 ml @ 100 mls/hr FIREPOT OPERATOR AND TENDER IV Last administered on 09/23/17 12:25; Start 09/23/17 at 12:00; Stop 09/26/17 at 11:59 Tranexamic Acid 1000 mg/Sodium Chloride 110 ml @ 220 mls/hr ONCE IV Last administered on 09/23/17 12:26; Start 09/23/17 at 12:00; Stop 09/23/17 at 18 :00; Status DC Tranexamic Acid 1000 mg/Sodium Chloride 110 ml @ 220 mls/hr ONCE IV Last administered on 09/23/17 15:56; Start 09/23/17 at 15:00; Stop 09/23/17 at 21 :00; Status DC Lactated Ringer's 1,000 ml @ 30 mls/hr Q24H PRN IV SEE LABEL COMMENTS Last administered on 09/23/17 12:10; Start 09/23/17 at 12:15; Stop 09/26/17 at 12 :14 Sodium Chloride 500 ml @ 30 mls/hr [id number] PRN IV SEE LABEL COMMENTS; Start at 12:15; Stop 09/26/17 at 12:14 Metoprolol Tartrate (Lopressor) 25 mg FIREPOT OPERATOR AND TENDER PRN PO SEE LABEL COMMENTS; Start 09/23/17 at 12:15; Stop 09/26/17 at 12:14 Povidone Iodine (Betadine 5% Antisepsis Kit) 1 applic FIREPOT OPERATOR AND TENDER PRN EACH NARE SEE LABEL COMMENTS Last administered on 09/23/17 12:20; Start 09/23/17 at 12: 15; Stop 09/26/17 at 12:14 Chlorhexidine Gluconate (Chlorhexidine 2% Cloth) 3 pack FIREPOT OPERATOR AND TENDER PRN TOPICAL SEE LABEL COMMENTS Last administered on 09/23/17 11:45; Start 09/23/17 at 12: 15; Stop 09/26/17 at 12:14 Propofol 50 ml @ As Directed STK-MED ONCE .ROUTE ; Start 09/23/17 at 12:22; Stop 09/23/17 at 12:23; Status DC Cefazolin Sodium (Ancef Inj) 2,000 mg STK-MED ONCE .ROUTE ; Start 09/23/17 at 12:43; Stop 09/23/17 at 12:44; Status DC Dextrose/Sodium Chloride 1,000 ml @ 125 mls/hr Q8H IV Last administered on 15:56; Start 09/23/17 at 15:12 Cefazolin Sodium 1000 mg/Sodium Chloride 100 ml @ 200 mls/hr Q6H IV ; Start at 18:00; Stop 09/23/17 at 20:42; Status DC Miscellaneous Information (Post-op Orders (for Pharmacy)) STAT ONCE XX ; Start 09/23/17 at 15:15; Stop 09/23/17 at 15:30; Status DC Rivaroxaban (Xarelto) 10 mg Q24H PO Last administered on 09/25/17 13:38; Start 09/24/17 at 15:00 Miscellaneous Medication ([facility]) ONCE ONCE XX ; Start at 15:15; Stop 09/23/17 at 15:30; Status DC Acetaminophen/ Hydrocodone Bitart ([place] 5-325 Mg) 1 tab Q4H PRN PO PAIN LESS THAN 5 ON SCALE Last administered on 09/26/17 08:52; Start 09/23/17 at 15:15 Acetaminophen/ Hydrocodone Bitart ([place] 5-325 Mg) 2 tab Q4H PRN PO PAIN SCALE 5 TO 10; Start 09/23/17 at 15:15 Acetaminophen (Tylenol) 650 mg Q6H PRN PO FEVER > 101; Start 09/23/17 at 15:15 Tranexamic Acid 1000 mg/Sodium Chloride 110 ml @ 200 mls/hr UNSCH IV ; Start 09/23/17 at 15:26; Stop 09/23/17 at 21:26; Status DC Ondansetron HCl (Zofran Inj) 4 mg Q6H PRN IVP NAUSEA OR VOMITING; Start at 15:15 Docusate Sodium (Colace) 100 mg BID PRN PO CONSTIPATION Last administered on 08:51; Start 09/23/17 at 15:15 Zolpidem Tartrate (Ambien) 5 mg HS PRN PO SLEEP; Start 09/23/17 at 15:15 Naloxone HCl (Narcan Inj) 0.4 mg UNSCH PRN IV PUSH RESPIRATORY RATE LESS THAN 10; Start 09/23/17 at 15:15 Morphine Sulfate (Morphine 1 Mg/ ml STONE SANDBLASTER) 30 mg UNSCH IV Last administered on 01:27; Start 09/23/17 at 15:15; Stop 09/25/17 at 15:14; Status DC STONE SANDBLASTER Dosage Infused (Pha) 1 Q8HR .XX Last administered on 09/24/17 06:00; Start 09/23/17 at 22:00; Stop 09/25/17 at 21:59; Status DC Morphine Sulfate (*morphine INJ PERIprocedure ONLY) 8 mg STK-MED ONCE .ROUTE Last administered on 09/23/17 15:16; Start 09/23/17 at 15:16; Stop 09/23/17 at 15:17; Status DC Miscellaneous Information ALL NURSING DEPARTME... UNSCH PRN .XX SEE LABEL COMMENTS; Start 09/23/17 at 15:09; Stop 09/24/17 at 15:08; Status DC Meperidine HCl (*DEMEROL INJ PERIprocedural ONLY) 25 mg STK-MED ONCE .ROUTE Last administered on 09/23/17 16:20; Start 09/23/17 at 16:20; Stop 09/23/17 at 16:21; Status DC Cefazolin Sodium 1000 mg/Sodium Chloride 100 ml @ 200 mls/hr Q6H IV Last administered on 09/24/17 08:47; Start 09/23/17 at 20:00; Stop 09/24/17 at 08 :29; Status DC Atorvastatin Calcium (Lipitor) 20 mg EVERY OTHER DAY PO ; Start 09/24/17 at 09 :00; Stop 09/24/17 at 09:19; Status DC Buspirone HCl (Buspar) 10 mg TID PO Last administered on 09/26/17 08:51; Start 09/24/17 at 09:00 Diltiazem HCl (Cardizem Cd) 240 mg DAILY PO ; Start 09/24/17 at 09:00; Stop at 09:00; Status DC Gabapentin (Neurontin) 300 mg DAILY PO ; Start 09/24/17 at 09:00; Stop at 09:19; Status DC Famotidine (Pepcid) 20 mg BID PO Last administered on 09/26/17 08:51; Start 09/24/17 at 09:00 Albuterol/ Ipratropium (Duoneb Neb) 1 ampule Q4HR NEB PRN NEB SOB/WHEEZING Last administered on 09/24/17 08:23; Start 09/24/17 at 01:15; Stop 09/24/17 at 09:20; Status DC Diltiazem HCl (Cardizem Cd) 240 mg DAILY PO Last administered on 09/24/17 01: 19; Start 09/24/17 at 01:15; Stop 09/24/17 at 09:19; Status DC Atorvastatin Calcium (Lipitor) 20 mg HS PO Last administered on 09/25/17 21: 37; Start 09/24/17 at 21:00 Diltiazem HCl (Cardizem Cd) 240 mg HS PO Last administered on 09/25/17 21:37 ; Start 09/24/17 at 21:00 Albuterol/ Ipratropium (Duoneb Neb) 1 ampule Q8HR NEB PRN NEB SOB/WHEEZING; Start 09/24/17 at 09:30; Stop 09/24/17 at 11:24; Status DC Ipratropium Higgins (Atrovent Neb) 0.5 mg Q12HR NEB NEB Last administered on 09/26/17 08:50; Start 09/24/17 at 20:00 Albuterol Sulfate (Albuterol Neb) 1.25 mg Q12HR NEB NEB ; Start 09/24/17 at 20 :00; Stop 09/25/17 at 10:39; Status DC Patient Own Medication PT OWN MED: LEVALBUTEROL MG 1... BID INH ; Start at 11:00; Status Future Hold Magnesium Hydroxide (Milk Of Magnesia Liq) 30 ml DAILY PRN PO Mild-moderate constipation Last administered on 09/26/17t 08:51; Start 09/25/17 at 13:00 A/P Assessment and Plan S/P right total hip arthroplasty by Dr Irineo greer on 09/24/17 Management per ortho Chronic medical problems appears stable at this time. COPD continue on levo albuterol, Afib currently on Xarelto here, HLD continue on Lipitor, CKD3 check labs still here tomorrow, h/o cancer with partial right lung removal Patient to use his own medicaltion levalbuterol. Discussed with the nurse and the pharmacist. did bring levalbuterol from home. Discussed with the patient, nurse, at bedside. PT and OT eval and treat A.m. labs still here tomorrow Discharge Planning Pending acceptance that Doug Rome DO Sep 26, 2017 09:15
[2017-09-26] MEDS ORDERED: PANTOPRAZOLE SOD 20 MG DELAYED RELEASE TAB PO SCH (10:00)
[2017-09-26 12:00] VITALS: BP 117/65; PULSE 80; RESP 18; TEMP 97.9; O2SAT 96
[2017-09-26] MEDS: DEXT 5%-NACL 0.45% 1000 ML INJ 1,000 ML IV SCH (12:45)
[2017-09-26] MEDS: RIVAROXABAN 10 MG TAB PO SCH (12:48)
[2017-09-26] MEDS ORDERED: ENOX60P SQ (14:09)
[2017-09-26 16:21] VITALS: BP 108/62; PULSE 86; RESP 18; TEMP 97.5; O2SAT 93
--- NOTE | 2017-09-29 16:12 | MD ---
cc: DONNA ANG M.D., THEODOSSIS MD SELTZER, NORMAN HORENSTEIN, JOSHUA A. MD ADMISSION DATE: 09/23/2017 DISCHARGE DATE: 09/26/2017 ADMISSION DIAGNOSIS Aseptic necrosis of the right hip, pain right hip and gait disturbance. DISCHARGE DIAGNOSIS Aseptic necrosis of the right hip, pain right hip and gait disturbance. HISTORY The patient is a 66-year-old white male with an extended history of pain involving the right hip of at least two years duration. His history dates back actually for a number of years beyond that time where he had undergone previous evaluation initially directed toward his right foot was diagnosed as having a stress fracture for which he was fitted with boot support. He did subsequently undergo a CT scan evaluation with no abnormal findings being noted, but was requiring use of a wheelchair and walker as ambulatory aids. He reported a 40-year history of low back pain for which he had received previous pain management disposition and was subsequently encouraged to proceed with neurosurgical evaluation. At that time an MRI scan was completed with findings reporting avascular necrosis bilaterally, more pronounced about the right hip. The patient was referred for orthopedic evaluation and was seen in the office in August of this year at which time he reported ongoing pain of his hip radiating into the groin area for which he was having considerable difficulty conforming to all weightbearing activities. He was taking hydrocodone for pain management and continued to utilize a cane as an ambulatory aid but becoming progressively more dependent on a walker. He did admit to a longstanding history of ethanol abuse having discontinued consumption within the previous 3 years. Otherwise there was no additional history to support the diagnosis of aseptic necrosis. X-ray studies did confirm collapse of the femoral head with flattening effect superiorly that was consistent with avascular necrosis. Findings and treatment options were reviewed. The pros and cons of continuing with conservative management versus operative intervention that would involve a total hip arthroplasty were outlined in detail. Emphasis was made regarding the fact that the decision to proceed with surgery would be left entirely to the patient's discretion. The patient readily admitted that he had arrived at that point in time where he was ready to proceed accordingly and in compliance with his wishes he was ready to proceed with treatment as discussed. In compliance with his wishes he was scheduled for admission at this time in order that the above be accomplished. PHYSICAL EXAMINATION His physical examination revealed no localizing tenderness about the lateral aspect of the right hip. In a seated position there was restricted mobility of the hip joint in all ranges assessed with pain and apprehension at the extremes of motion. No sensation of crepitation or instability. Straight-leg raising limited to 60 degrees. Distal sensory grossly intact. Pronounced antalgic gait. HOSPITAL COURSE Prior to admission to the hospital the patient had undergone medical evaluation and clearance for surgery with his primary care physician, Dr. Donna Ang, pulmonary clearance per Dr. Pedraza and cardiology clearance per Dr. Benz. He was taken to the operating room on September 23, 2017, and on that date underwent a right total hip arthroplasty completed in an uncomplicated manner. The patient was noted to have tolerated his operative procedure well. His postoperative course was stable thereafter. The hemoglobin/hematocrit assessment postoperatively was 11.8 and 35.8 respectively. The patient was progressively mobilized under the guidance of physical therapy being permitted weightbearing to tolerance about the right lower extremity. Follow-up examination of his surgical wound noted it to be intact, healing favorably, no evidence of infection. Medical followup per the hospital service. DVT prophylaxis initiated. Senior Cobol Developer consulted to assist with discharge planning. Recommendation was made for the patient to proceed with temporary rehab placement upon discharge from the hospital. He was receptive to this recommendation and pending medical clearance he was scheduled for transfer on the third postoperative day at which time he was making steady progress with regards to his rehab program. He was scheduled be seen in office followup in approximately 4 weeks. CONDITION ON DISCHARGE His condition at the time of discharge was stable. PROGNOSIS Favorable. DISCHARGE MEDICATIONS 1. Hydrocodone 05/325, #60. 2. The patient was also to resume Coumadin therapy as he had taken preoperatively. MD OLE Anguiano/SSB /7:42 AM /3:49 PM
== END 2017-09-26 18:19 | DRG 470 ==
LOC: HSDI 11:02 → N06B 17:18
PROVIDERS: ADMIT Orthopaedic Surgery; ATTEND Orthopaedic Surgery
PROC: 0SR904A Replacement of Right Hip Joint with Ceramic on Polyethylene Synthetic Substitute, Uncemented, Open Approach (ICD-10-PCS; principal; 2017-09-23 12:31)
DX: M87.9 Osteonecrosis, unspecified (principal); I48.91 Unspecified atrial fibrillation; N18.3 Chronic kidney disease, stage 3 (moderate); I12.9 Hypertensive chronic kidney disease with stage 1 through stage 4 chronic kidney disease, or unspecified chronic kidney disease; Z90.2 Acquired absence of lung [part of]; Z85.118 Personal history of other malignant neoplasm of bronchus and lung; M54.5 Low back pain; R26.9 Unspecified abnormalities of gait and mobility; Z86.73 Personal history of transient ischemic attack (TIA), and cerebral infarction without residual deficits; J43.9 Emphysema, unspecified; E78.00 Pure hypercholesterolemia, unspecified; Z79.52 Long term (current) use of systemic steroids; E78.5 Hyperlipidemia, unspecified; K59.03 Drug induced constipation; T40.2X5A Adverse effect of other opioids, initial encounter; F41.9 Anxiety disorder, unspecified; F32.9 Major depressive disorder, single episode, unspecified; Z87.891 Personal history of nicotine dependence; Z87.01 Personal history of pneumonia (recurrent); Z85.828 Personal history of other malignant neoplasm of skin
CPT/HCPCS: 73501; 85014; 85018; 85610; 86850; 86900; 86901; 88304; 88311; 93005; 94150; 94640; 94664; C1776; J0131; J0690; J1100; J2175; J2270; J2370; J2405; J7120; J7644